=== PATIENT | female | born 1940 | race Caucasian/White ===

== ENCOUNTER 2020-07-15 17:07 | Emergency (ER) | payer MEDICARE ==
[~2020-07-15] VITALS: Ht 152.4 cm; Wt 101.6 kg
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
[2020-07-15] MEDS ORDERED: BUMETANIDE 1 MG1 M1 PO (17:35)
[2020-07-15] MEDS ORDERED: CLONAZEPAM 0.50.5 M1 PO (17:35)
[2020-07-15] MEDS ORDERED: ASPIRIN325 PO (17:35)
[2020-07-15] MEDS ORDERED: LIPITOR40 MG PO (17:35)
[2020-07-15] MEDS ORDERED: LUTEIN-ZEAXANT1 EACH PO (17:36)
[2020-07-15] MEDS ORDERED: NEURONTIN 300M300 M2 PO (17:36)
[2020-07-15] MEDS ORDERED: MELOXICAM15 MG PO (17:36)
[2020-07-15] MEDS ORDERED: MULTIPLE VITAM1 EAC4 PO (17:37)
[2020-07-15] MEDS ORDERED: FENTANYL (17:37)
[2020-07-15] MEDS ORDERED: PROTONIX40 M2 PO (17:37)
[2020-07-15 17:41] LABS: URINE BILIRUBIN NEGATIVE (Negative); URINE BLOOD NEGATIVE (Negative); URINE CLARITY CLEAR; URINE COLOR YELLOW; URINE GLUCOSE-RANDOM NEGATIVE (Negative); URINE KETONES NEGATIVE (Negative); URINE LEUKOCYTES-REFLEX TRACE (Negative); URINE NITRITE-REFLEX NEGATIVE (Negative); URINE PROTEIN NEGATIVE (Negative); URINE SPECIFIC GRAVITY 1.015 (1.005-1.030); URINE UROBILINOGEN 0.2 E.U./dl (0.2-1.0)
[2020-07-15] MEDS ORDERED: PRESERVISION L1 EACH PO (17:41)
[2020-07-15] MEDS ORDERED: VITAMIN B-121000 MC2 PO (17:42)
[2020-07-15] MEDS ORDERED: VITAMIN D310 MC2 (17:42)
[2020-07-15] MEDS ORDERED: SERTRALINE HCL100 MG PO (17:42)
[2020-07-15 17:56] LABS: BACTERIA-REFLEX 1-9 Few /HPF (None Seen); CASTS None Seen /LPF (None Seen); CRYSTALS None Seen /LPF (None Seen); SQUAMOUS 0-3 Few /LPF (0-3); URINE RBC 0-2 Rare /HPF (0-2); URINE WBC-REFLEX 0-5 Rare /HPF (0-5)
[2020-07-15 17:57] LABS: ABSOLUTE BASOPHILS 0.1 thou/uL (0.0-0.2); ABSOLUTE EOSINOPHILS 0.2 thou/uL (0.0-0.7); ABSOLUTE LYMPHOCYTES 1.9 thou/uL (0.8-5.3); ABSOLUTE MONOCYTES 0.5 thou/uL (0.0-1.2); ABSOLUTE NEUTROPHILS 5.7 thou/uL (1.6-8.1); BASOPHILS 0.6 %; EOSINOPHILS 2.8 %; HEMATOCRIT 41.7 % (37.0-47.0); HEMOGLOBIN 13.6 gm/dL (12.0-15.0); LYMPHOCYTES 22.4 %; MCH 27.2 pg (26.0-34.0); MCHC 32.7 g/dL (28.0-37.0); MCV 83.2 fL (80.0-100.0); MONOCYTES 5.5 %; MPV 8.2 fl. (7.2-11.1); NUCLEATED RBCS 0 /100WBC; PLATELET COUNT* 158 thou/uL (150-400); POLYS 68.7 %; RBC 5.01 mil/uL (4.20-5.00); RDW-CV 14.5 % (10.5-14.5); WBC 8.4 thou/uL (4.0-11.0)
[2020-07-15 18:10] LABS: CALCIUM 8.8 mg/dL (8.5-10.1); CREATININE 1.2 mg/dL (0.6-1.3); POTASSIUM 3.8 mmol/L (3.5-5.1)
[2020-07-15 18:15] LABS: ALBUMIN 3.9 g/dL (3.4-5.0); TOTAL BILIRUBIN 0.3 mg/dL (<0.1-1.0); TOTAL PROTEIN 7.6 g/dL (6.4-8.2)
[2020-07-15] MEDS ORDERED: LENZAPATCH 4%-1 EACH TRANSDERM (19:45)
[2020-07-15 19:59] VITALS: BP 186/82
--- NOTE | 2020-07-16 15:58 | EKG ---
[place] [address] ELECTROCARDIOGRAM REPORT Name: Vance BALLESTEROS Room: [facility]#: [id number] Admission: 07/15/20 Attend Phys: Discharge: 07/15/20 Date of : 44 Date of Service: 07/15/20 1735 Report #: [id number] THIS REPORT FOR: //name// [facility] ED Test Date: 2020-07-15 Test Time: 17:35:29 Pat Name: Vance BALLESTEROS Department: Room: Gender: Program Manager Environmental Planning: : 1940 Requested By: Thuy Helton Order Number: [id number] MD: Kain Hatch Measurements Intervals [place] Rate: 75 P: 63 [place]: 182 QRS: 3 QRSD: 91 T: 49 QT: 395 QTc: 442 Interpretive Statements Sinus rhythm No previous ECG available for comparison Electronically Signed On 07-16-2020 15:57:54 CLINICAL TECHNICIAN by Kain Hatch [email or web address] <ELECTRONICALLY SIGNED> By: Kain Hatch MD, [facility] 07/16/20 1557 1735 [id number] Kain Hatch MD, FACC /EPI
== END 2020-07-15 19:59 | disposition home or self-care (01) ==
LOC: M.ERS 17:07
PROVIDERS: Nurse Practitioner Family
DX: S22.42XA Multiple fractures of ribs, left side, initial encounter for closed fracture (principal); I10 Essential (primary) hypertension; E78.5 Hyperlipidemia, unspecified; Z79.82 Long term (current) use of aspirin; Z79.899 Other long term (current) drug therapy; Z88.0 Allergy status to penicillin; Z88.1 Allergy status to other antibiotic agents; Z88.5 Allergy status to narcotic agent; Z88.8 Allergy status to other drugs, medicaments and biological substances; X58.XXXA Exposure to other specified factors, initial encounter; Y93.89 Activity, other specified; Y92.89 Other specified places as the place of occurrence of the external cause; Y99.8 Other external cause status